=== PATIENT | male | born 1995 | race Caucasian/White ===

== ENCOUNTER 2017-05-23 13:08 | Inpatient (IN) | payer OTHER ==
[~2017-05-23] VITALS: Ht 176.5 cm; Wt 107.6 kg
[2017-06-15] VITALS (11 sets, daily range): BP systolic 100–154; BP diastolic 53–79; PULSE 67–96; TEMP 97.7–98.4
[2017-06-16] VITALS: BP 135/60; PULSE 74; TEMP 98.9
[2017-06-16 04:00] VITALS: BP 142/58; PULSE 66; TEMP 97.8
[2017-06-16 08:00] VITALS: BP 132/55; PULSE 70; TEMP 98.4
[2017-06-16 14:31] VITALS: BP 130/66; PULSE 74; TEMP 97.5
[2017-06-16 17:08] VITALS: BP 150/74; PULSE 61; TEMP 98.3
[2017-06-16 20:53] VITALS: BP 137/74; PULSE 76; TEMP 97.4
[2017-06-17 05:56] VITALS: BP 139/68; PULSE 76; TEMP 98.5
[2017-06-17 06:39] LABS: CREATININE, serum 0.86 mg/dL (0.66-1.25); POTASSIUM 4.3 mmol/L (3.4-5.0)
[2017-06-17 10:34] VITALS: BP 139/76; PULSE 85; TEMP 98.8
[2017-06-17 14:06] VITALS: BP 152/83; PULSE 86; TEMP 100.1
[2017-06-17 17:49] VITALS: BP 130/70; PULSE 94; TEMP 98.9
[2017-06-17 19:56] VITALS: BP 145/75; PULSE 82; TEMP 100
[2017-06-17 21:30] VITALS: BP 145/75; PULSE 82; TEMP 100; TEMP 99.6
[2017-06-18 05:07] VITALS: BP 141/79; PULSE 80; TEMP 98.7
[2017-06-18 07:33] LABS: COLLECTION METHOD CLEAN CATCH
[2017-06-18 08:00] VITALS: BP 129/69; PULSE 78; TEMP 98.7
[2017-06-18 08:01] LABS: AMORPHOUS CRYSTAL Present /uL; MUCOUS Present /lpf; PH 6 (5-8); SQUAMOUS EPITHELIAL None Seen /hpf; URINE APPEARANCE Clear; URINE BACTERIA Rare /hpf; URINE BILIRUBIN Negative (NEGATIVE); URINE BLOOD 2+ (NEGATIVE); URINE COLOR Amber; URINE GLUCOSE Negative (NEGATIVE); URINE KETONE Negative (NEGATIVE); URINE LEUKOCYTE ESTERASE Trace (NEGATIVE); URINE PROTEIN(semi-quant) 2+ (NEGATIVE); URINE RBC >50 /hpf; URINE UROBILINOGEN Negative (NEGATIVE)
[2017-06-18 12:00] VITALS: BP 139/87; PULSE 73; TEMP 96.9
[2017-06-18 16:00] VITALS: BP 135/77; PULSE 86; TEMP 99.2
[2017-06-18 20:31] VITALS: BP 143/87; PULSE 85; TEMP 98.5
[2017-06-19 05:03] VITALS: BP 149/73; PULSE 70; TEMP 98.5
== END 2017-06-19 10:10 | disposition home or self-care (01) | DRG 660 ==
LOC: INPTSU 06-15 05:06 → SURG 06-15 05:06 → INPTSU 06-15 05:06 → SURG 06-15 05:07
PROVIDERS: Urology
PROC: 0TS74ZZ Reposition Left Ureter, Percutaneous Endoscopic Approach (ICD-10-PCS; principal; 2017-06-15 07:30)
PROC: 0TB Urinary System, Excision (ICD-10-PCS; 2017-06-15 07:30)
PROC: 0T9780Z Drainage of Left Ureter with Drainage Device, Via Natural or Artificial Opening Endoscopic (ICD-10-PCS; 2017-06-15 07:30)
DX: N13.0 Hydronephrosis with ureteropelvic junction obstruction (principal); Z87.891 Personal history of nicotine dependence
CPT/HCPCS: A4314; A9284; C1713; C1769; C2617; J0690; J1100; J1885; J1956; J2270; J2405; J2550; J2704; J2710; J3010; J7120

== ENCOUNTER 2017-08-03 08:18 | Day surgery (SDC) | payer OTHER ==
[~2017-08-03] VITALS: Ht 175.3 cm; Wt 109.7 kg
[2017-08-03] VITALS (7 sets, daily range): BP systolic 111–136; BP diastolic 58–80; PULSE 63–85; TEMP 97.5–98.4
[2017-08-03] MEDS ORDERED: NORCO 325 MG-51 TAB PO (09:23)
[2017-08-03] MEDS ORDERED: SENOKOT S 50 MG1 TAB PO (11:45)
== END 2017-08-03 12:56 | disposition home or self-care (01) ==
LOC: SDCO 08:18
DX: N13.0 Hydronephrosis with ureteropelvic junction obstruction (principal); Z87.891 Personal history of nicotine dependence; Z83.3 Family history of diabetes mellitus; Z82.49 Family history of ischemic heart disease and other diseases of the circulatory system; Z80.51 Family history of malignant neoplasm of kidney
CPT/HCPCS: C1769; J0690; J1100; J1885; J2405; J2704; J3010; J7120; Q9967

== ENCOUNTER → 2017-10-10 | Outpatient (CLI) | payer OTHER ==
[~2017-10-10] MED LIST: NORCO 325 MG-51 TAB PO; SENOKOT S 50 MG1 TAB PO
== END ==
LOC: COL.LAB 12:25 → COL.RAD 12:25
DX: N13.0 Hydronephrosis with ureteropelvic junction obstruction (principal); N28.9 Disorder of kidney and ureter, unspecified
CPT/HCPCS: A9562

== ENCOUNTER 2017-12-13 13:11 | Day surgery (SDC) | payer OTHER ==
[~2017-12-13] VITALS: Ht 175.3 cm; Wt 109.2 kg
[2017-12-13 14:07] VITALS: BP 139/78; PULSE 64; TEMP 98
[2017-12-13 15:05] VITALS: BP 121/79; PULSE 59; TEMP 97.4
[2017-12-13 15:20] VITALS: BP 118/77; PULSE 59
[2017-12-13 16:50] VITALS: BP 121/79; PULSE 59; TEMP 97.4
[2017-12-13 17:05] VITALS: BP 133/78; PULSE 59
[2017-12-13] MEDS ORDERED: NORCO 325 MG-51 TAB PO (17:30)
[2017-12-13] MEDS ORDERED: SENOKOT S 50 MG1 TAB PO (17:30)
[2017-12-13] MEDS ORDERED: PYRIDIUM 100MG100 MG PO (17:31)
== END 2017-12-13 17:55 | disposition home or self-care (01) ==
LOC: SDCO 13:11
DX: N13.0 Hydronephrosis with ureteropelvic junction obstruction (principal); F17.210 Nicotine dependence, cigarettes, uncomplicated
CPT/HCPCS: C1769; C2617; J0690; J1170; J2405; J2704; J3010; J7120; Q9967